=== PATIENT | female | born 1950 | race Caucasian/White ===

== ENCOUNTER 2021-07-16 09:49 | Emergency (ER) | payer OTHER, BC ==
[2021-07-16 10:03] VITALS: TEMP 97.8; BMI 31.1
[2021-07-16 11:14] LABS: BASO % 0.5 % (0-2.0); EOS % 1.2 % (0-4.5); HEMATOCRIT 39.1 % (32.4-45.2); HEMOGLOBIN 12.9 GM/dL (10.7-15.3); LYMPH % 14.7 % (8-40); MCH 29.5 pg (25.7-33.7); MCHC 32.8 g/dl (32.0-36.0); MEAN CELL VOLUME 89.8 fl (80-96); MEAN PLT VOLUME 11.2 fl (7.5-11.1); MONO % 4.8 % (3.8-10.2); NEUT % 78.8 % (42.8-82.8); PLATELET COUNT 184 10^3/uL (134-434); RBC 4.36 M/mm3 (3.60-5.2); RDW 14.6 % (11.6-15.6); WHITE BLOOD COUNT 7.6 K/mm3 (4.0-10.0)
[2021-07-16 11:40] LABS: ALBUMIN 3.4 g/dl (3.4-5.0); BLOOD UREA NITROGEN 29.9 mg/dL (7-18); CALCIUM 9.4 mg/dL (8.5-10.1)
[2021-07-16 11:43] LABS: CREATININE 0.9 mg/dL (0.55-1.3)
[2021-07-16 11:45] LABS: BILIRUBIN,TOTAL 0.5 mg/dL (0.2-1); TOT PROT 6.3 g/dl (6.4-8.2)
[2021-07-16 13:32] LABS: INR 1.07 (0.83-1.09); PROTHROMBIN TIME (PATIENT) 12.3 SEC (9.7-13.0)
[2021-07-16 13:35] LABS: ACTIVATED PTT 28.1 SECONDS (25.2-36.5)
[2021-07-16 15:26] VITALS: BP 126/58; PULSE 71
== END 2021-07-16 15:27 | disposition home or self-care (01) ==
LOC: JER 09:49
DX: R11.10 Vomiting, unspecified (principal); R06.02 Shortness of breath
CPT/HCPCS: 0241U-QW; 36415; 71045-TC-FY; 80053; 84484; 85025; 85610; 85730; 86850; 86900; 86901; 93005; 93010; 99285-25